=== PATIENT | male | born 1965 | race Caucasian/White ===

== ENCOUNTER → 2020-08-31 | Outpatient (CLI) | payer BC | LOC: COL.VAS 11:58 | DX: I65.23 Occlusion and stenosis of bilateral carotid arteries (principal) ==

== ENCOUNTER 2020-12-22 16:01 | Observation (INO) | payer BC ==
[~2020-12-22] VITALS: Ht 175.3 cm; Wt 97.7 kg
[2020-12-22 16:42] LABS: BASO % 0.4 % (0.0-2.0); EOS % 0.3 % (0-4.0); GRAN % 69.5 % (42.2-75.2); HEMOGLOBIN 14.3 g/dl (13.5-18.0); LYMPH # 2.2 (1.2-3.4); LYMPH % 21.8 % (20.0-51.0); MEAN CELL VOLUME 98 fl (80.0-100.0); MEAN CORPUSCULAR HEMOGLOBIN 33 pg (27.0-31.0); MEAN CORPUSCULAR HGB CONC 33 g/dl (33.0-37.0); MEAN PLATELET VOLUME 10.7 fl (7.4-10.4); MONO # 0.7 (0.1-0.6); MONO % 7.3 % (1.7-9.3); PLATELET COUNT 162 K/mm3 (130-400); RED BLOOD COUNT 4.37 M/mm3 (4.20-5.60); REDCELL DISTRIBUTION WIDTH-CV 12.6 % (11.5-14.5)
[2020-12-22 16:52] LABS: ALBUMIN 4.5 gm/dL (3.5-5.0); BILIRUBIN,TOTAL 1.1 mg/dL (0.0-1.0); CALCIUM 9.7 mg/dL (8.4-10.2); CREATININE, serum 1.2 (0.66-1.25); POTASSIUM 4.2 mmol/L (3.4-5.0); TOTAL PROTEIN 7.4 gm/dL (6.4-8.2)
[2020-12-22] MEDS ORDERED: FLOMAX 0.40.4 MG/CAP PO (16:58)
[2020-12-22] MEDS ORDERED: GLUCOPHAGE500 MG/TAB PO (16:59)
[2020-12-22] MEDS ORDERED: PRINIVIL20 MG PO (16:59)
[2020-12-22] MEDS ORDERED: CELEXA10 MG PO (16:59)
[2020-12-22] MEDS ORDERED: LIPITOR20 MG PO (16:59)
[2020-12-22] MEDS ORDERED: SYNTHROID0.05 MG/TA PO (17:00)
[2020-12-22] MEDS ORDERED: ZYLOPRIM 100MG100 MG PO (17:00)
[2020-12-22] MEDS ORDERED: VITAMIN B1 50 MG (17:00)
[2020-12-22] MEDS ORDERED: BUSPAR DIVIDOSE15 MG PO (17:01)
[2020-12-22] MEDS ORDERED: ELIQUIS 5MG PO (17:01)
[2020-12-22] MEDS ORDERED: TAZTIA300 (17:01)
[2020-12-22] MEDS ORDERED: LYRICA 100MG C100 M1 PO (17:01)
[2020-12-22] MEDS ORDERED: QUESTRAN4 GM/9 GM PO (17:02)
[2020-12-22 17:06] LABS: TROPONIN-I 0.039 ng/mL (0.000-0.035)
[2020-12-22 17:44] LABS: INR 1.5 (0.8-3.0)
[2020-12-22 17:46] LABS: PARTIAL THROMBOPLASTIN TIME 32.4 SECONDS (26.0-37.0)
[2020-12-22 20:38] LABS: CHOLESTEROL RISK RATIO 2.3
[2020-12-22 22:02] VITALS: BP 149/63; PULSE 98; TEMP 98.3
[2020-12-23] VITALS (23 sets, daily range): BP systolic 113–166; BP diastolic 53–93; PULSE 69–92; TEMP 97.4–98.5
--- NOTE | 2020-12-23 05:59 | NUR ---
Patient was pleasant and rested throughout the evening after giving him melatonin. He has not needed any pain medication. Loop recorder was interrogated and results placed in chart. He has been NPO since midnight.
[2020-12-23 06:29] LABS: ALBUMIN 3.4 gm/dL (3.5-5.0); BILIRUBIN,TOTAL 1.1 mg/dL (0.0-1.0); CALCIUM 8.5 mg/dL (8.4-10.2); CREATININE, serum 1.07 (0.66-1.25); POTASSIUM 3.9 mmol/L (3.4-5.0)
[2020-12-23 06:40] LABS: TROPONIN-I 0.042 ng/mL (0.000-0.035)
[2020-12-23 06:49] LABS: BASO % 0.6 % (0.0-2.0); EOS # 0.1 (0.0-0.7); EOS % 1.2 % (0-4.0); GRAN # 3.2 (1.4-6.5); GRAN % 48.3 % (42.2-75.2); LYMPH # 2.5 (1.2-3.4); LYMPH % 38.2 % (20.0-51.0); MEAN CELL VOLUME 98 fl (80.0-100.0); MEAN CORPUSCULAR HGB CONC 34 g/dl (33.0-37.0); MEAN PLATELET VOLUME 10.8 fl (7.4-10.4); MONO # 0.7 (0.1-0.6); MONO % 11.2 % (1.7-9.3); PLATELET COUNT 131 K/mm3 (130-400); RED BLOOD COUNT 3.66 M/mm3 (4.20-5.60); REDCELL DISTRIBUTION WIDTH-CV 12.6 % (11.5-14.5)
[2020-12-23 07:04] LABS: HEMATOCRIT 35.8 % (42.0-52.0); HEMOGLOBIN 12.2 g/dl (13.5-18.0); MEAN CORPUSCULAR HEMOGLOBIN 33 pg (27.0-31.0)
--- NOTE | 2020-12-23 09:36 | NUR ---
Assessment complete. Patient sitting up in the recliner at this time. Patient denies pain or discomfort at this time. He is aware of his POC. He remains NPO at this time, pending a consult with Dr. Chirinos. Heart murmur obvious on auscultation. No other needs were expressed at thsi time. Call light is in reach.
--- NOTE | 2020-12-23 09:37 | NUR ---
SW met with the patient to discuss discharge plan. The patient lives alone in [place]. He reports independence with ADLs and has a walking stick. The patient's PCP is Dr. Benoit De Guzman and he receives his medications from [facility]. The patient does not have a DPOA-HC and he was not interested in completing one at this time. He states that he is not and does not have any children. His parents are Andrei (ph#[phone]) and Jennifer Butt and they are his next of kin. They live in [place]. The patient plans to return home upon discharge. No additional needs at this time.
--- NOTE | 2020-12-23 09:52 | NUR ---
Initial visit; Patient thanked Management Assistant for looking in on him and offering God's blessings.
[2020-12-23 14:41] LABS: HEMATOCRIT 38.8 % (42.0-52.0); HEMOGLOBIN 12.8 g/dl (13.5-18.0); MEAN CELL VOLUME 100 fl (80.0-100.0); MEAN CORPUSCULAR HEMOGLOBIN 33 pg (27.0-31.0); MEAN CORPUSCULAR HGB CONC 33 g/dl (33.0-37.0); MEAN PLATELET VOLUME 10.7 fl (7.4-10.4); PLATELET COUNT 135 K/mm3 (130-400); RED BLOOD COUNT 3.87 M/mm3 (4.20-5.60); REDCELL DISTRIBUTION WIDTH-CV 12.5 % (11.5-14.5)
[2020-12-23 14:46] LABS: INR 1.5 (0.8-3.0); PROTHROMBIN TIME 16.8 SECONDS (9.7-12.8)
[2020-12-23 14:49] LABS: PARTIAL THROMBOPLASTIN TIME 32.8 SECONDS (26.0-37.0)
[2020-12-23 14:50] LABS: CALCIUM 8.8 mg/dL (8.4-10.2); CREATININE, serum 0.97 (0.66-1.25); POTASSIUM 4.2 mmol/L (3.4-5.0)
--- NOTE | 2020-12-23 15:33 | NUR ---
ekg ordered @ 1417. rt not notified and did not see order until 1530. rt called medical floor and patient had already gone to laborer pipelines. ekg was not done.
--- NOTE | 2020-12-23 16:22 | NUR ---
Patient arrived back form heart cath at this time. He is alert, doing well, no complaints of pain. TR band is in place, no bleading or hematoma present. Minor tremors still present in patient but these were present prior to procedure. Vitals being monitored per protocol. Will continue to monitor. Call light is in reach.
--- NOTE | 2020-12-23 19:00 | NUR ---
15 mls of air to right radial compression band. 5 mls released. Site began bleeding. Reinflated to 15 mls. Bleeding stopped. Will wait 1 hour and attempt to release air again.
--- NOTE | 2020-12-23 21:15 | NUR ---
Shift assessment complete. A&Ox4. Heart RRR. Lungs CTA. Denies chest pain, SOA, dizziness or other concerns. TR band in place to right radial heart cath access site. Right hand warm and pink, pt denies numbness or tingling. Compression band with 15 mls air, 3 mls released with no signs of bleeding. Waited 10 minutes and 2 more mls released w/o complication. Denies needs. Call light in reach.
--- NOTE | 2020-12-23 22:00 | NUR ---
3 mls released from TR band w/o signs of bleeding.
--- NOTE | 2020-12-23 23:00 | NUR ---
2 mls released from right radial compression band w/o bleeding.
[2020-12-24 01:30] VITALS: BP 146/68; PULSE 82; TEMP 97.7
[2020-12-24 03:34] VITALS: BP 159/78; PULSE 81; TEMP 97.4
[2020-12-24 03:53] VITALS: BP 159/78; PULSE 81; TEMP 97.4
[2020-12-24 05:29] VITALS: BP 155/79; PULSE 82; TEMP 97.3
--- NOTE | 2020-12-24 06:01 | NUR ---
Rested through night w/no complaints. TR band remains in place to right wrist with no s/s complication. Denies chest pain.
[2020-12-24 06:57] LABS: HEMOGLOBIN 12.5 g/dl (13.5-18.0); MEAN CELL VOLUME 98 fl (80.0-100.0); MEAN CORPUSCULAR HEMOGLOBIN 34 pg (27.0-31.0); MEAN CORPUSCULAR HGB CONC 34 g/dl (33.0-37.0); MEAN PLATELET VOLUME 10.6 fl (7.4-10.4); PLATELET COUNT 128 K/mm3 (130-400); RED BLOOD COUNT 3.71 M/mm3 (4.20-5.60); REDCELL DISTRIBUTION WIDTH-CV 12.3 % (11.5-14.5)
[2020-12-24 06:59] LABS: HEMATOCRIT 36.5 % (42.0-52.0)
[2020-12-24 07:04] LABS: CALCIUM 8.5 mg/dL (8.4-10.2); CREATININE, serum 1.03 (0.66-1.25)
--- NOTE | 2020-12-24 07:10 | NUR ---
Report with NEGRO Bettencourt. Pt sitting up in chair awaiting breakfast, denies pain or needs at this time. TR band to right wrist, no s/s of bleeding. Call light in reach.
[2020-12-24 08:00] VITALS: BP 154/66; PULSE 87; TEMP 98
[2020-12-24] MEDS ORDERED: ASPIRIN 81M81 MG/TA2 PO (08:30)
--- NOTE | 2020-12-24 09:00 | NUR ---
Assessment complete. Pt ambulating in rm with steady gait, denies pain, A&O x 4. Bandaid to right wrist, no s/s of bleeding. Saline lock IV to left AC without s/s of complications. POC for discharge reviewed with pt. Call light in reach.
--- NOTE | 2020-12-24 11:10 | NUR ---
Discharge instructions reviewed with pt regarding medication plan, follow-up appointments, and post cath care. Questions invited and answered. Pt discharged home, ambulates out of facility accompanied by this nurse, transporation provided by pt's friend.
== END 2020-12-24 11:15 | disposition home or self-care (01) ==
LOC: COL.ER 16:01 → MEDICAL 18:04
PROVIDERS: Family Medicine; Internal Medicine Interventional Cardiology; Physician Assistant; Student in an Organized Health Care Education/Training Program; ADMIT Internal Medicine
DX: I25.10 Atherosclerotic heart disease of native coronary artery without angina pectoris (principal); I25.2 Old myocardial infarction; E03.9 Hypothyroidism, unspecified; F41.9 Anxiety disorder, unspecified; I35.1 Nonrheumatic aortic (valve) insufficiency; E11.9 Type 2 diabetes mellitus without complications; I10 Essential (primary) hypertension; E78.5 Hyperlipidemia, unspecified; I48.91 Unspecified atrial fibrillation; G47.33 Obstructive sleep apnea (adult) (pediatric); K58.9 Irritable bowel syndrome, unspecified; F17.210 Nicotine dependence, cigarettes, uncomplicated; Z79.84 Long term (current) use of oral hypoglycemic drugs; Z79.02 Long term (current) use of antithrombotics/antiplatelets
CPT/HCPCS: 99232-AI; C1769; G0378; J1644; J2250; J3010; J7040; Q9967

== ENCOUNTER 2021-03-03 14:16 | Day surgery (SDC) | payer OTHER ==
[~2021-03-03] VITALS: Ht 175.3 cm; Wt 99.5 kg
[2021-03-03] VITALS (11 sets, daily range): BP systolic 98–139; BP diastolic 41–63; PULSE 67–95; TEMP 98.2–98.6
[~2021-03-03 14:16] MED LIST: ASPIRIN 81M81 MG/TA2 PO; BUSPAR DIVIDOSE15 MG PO; CELEXA10 MG PO; ELIQUIS 5MG PO; FLOMAX 0.40.4 MG/CAP PO; GLUCOPHAGE500 MG/TAB PO; LIPITOR20 MG PO; LYRICA 100MG C100 M1 PO; PRINIVIL20 MG PO; QUESTRAN4 GM/9 GM PO; SYNTHROID0.05 MG/TA PO; TAZTIA300; VITAMIN B1 50 MG; ZYLOPRIM 100MG100 MG PO
[2021-03-03] MEDS ORDERED: CELEXA 20MG20 MG/TAB PO (15:20)
[2021-03-03] MEDS ORDERED: TAZTIA360 PO (15:22)
[2021-03-03] MEDS ORDERED: ONE-A-DAY ESSE1 EACH PO (15:26)
[2021-03-03] MEDS ORDERED: OMEGA-3 1000 MG1 CAP PO (15:27)
--- NOTE | 2021-03-03 19:27 | NUR ---
Patient resting in bed. CBI slowed. light pink output. Vss on room air. Scds ble. He tolerated dinner. Ivf per orders. Bedside report to Gerri NEGRO
--- NOTE | 2021-03-03 21:30 | NUR ---
PT IN BED. HAS CBI INFUSING AT SLOW RATE, URINE IS PINK TINGED. TAKES HS MEDS WITHOUT PROBLEM. IVF CAPPED, SITE TO LEFT FOREARM FLUSHES WELL. CATH CARE PROVIDED. DENIES PAIN AT THIS TIME.
[2021-03-04 03:06] VITALS: BP 144/56; PULSE 77; TEMP 98
--- NOTE | 2021-03-04 05:00 | NUR ---
URINE HAS REMAINED PINK WITH CBI IRRIGATION. PT HAS RESTED WELL THIS SHIFT.
[2021-03-04 07:45] VITALS: BP 151/71; PULSE 84; TEMP 98.3
--- NOTE | 2021-03-04 08:00 | NUR ---
I AGREE WITH [employer]ONE STUDENT ASSESSMENT, SEE CHARTING.
--- NOTE | 2021-03-04 08:00 | NUR ---
PATIENT ALERT AND ORIENTED. VITAL SIGNS STABLE. DENIES PAIN AT THIS TIME. PATIENT ADMITTED 03/03 FOR CYSTOSCOPY. MARIE TO DD WITH RED RED-TINGED URINE OUTPUT. CBI INFUSING AT MODERATE RATE. PATIENT ASSESSMENT WITHIN NORMAL LIMITS. HEART MURMUR NOTED. TOLERATING CARB CONTROL DIET WITH NO COMPLAINTS OF N/V. LEFT FOREARM IV TO INT. PATIENT RESTING IN BED WITH CALL LIGHT IN REACH. NO OTHER NEEDS AT THIS TIME.
[2021-03-04 11:36] VITALS: BP 151/60; PULSE 77; TEMP 98.4
--- NOTE | 2021-03-04 11:47 | NUR ---
SW met with patient to conduct intake evaluation. Patient lives at home alone in [place]. Patient does not have a DPOA presently, but he does have paperwork at home that is filled out. Patient's PCP is Dr. De Guzman, and he uses [facility] for medications. Patient denies needing assistance with ADLs and uses a cane for mobility and a CPAP. Patient does not remember who provided him with CPAP. Patient will need assistance affording medications. SW will provide assistance. Patient plans to return home upon discharge and drive himself. Patient will discharge home today 03/[address].
--- NOTE | 2021-03-04 11:50 | NUR ---
P&P MARIE PER ORDERS. ARBENE STUDENT DID P&P, NOTED 1300CC OF RED-TINGED URINE. PATIENT TOLERATED WELL. URINAL AT BEDSIDE. PATIENT GIVEN 6 BOTTLE ROUTINE EDUCATION.
--- NOTE | 2021-03-04 12:04 | NUR ---
Engineering Manager visited with patient but nothing else needed at this time.
--- NOTE | 2021-03-04 13:30 | NUR ---
PATIENT CALLED OUT REQUESTING TO DISCHARGE AFTER SECOND VOID. URINE IS PINK, CLEAR, NO CLOTS. PATIENT REPORTS HE HAS ANXIETY AND NEEDS TO GET HOME. 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 UROLOGIST OKAYED DISCHARGE. DC'D LEFT FORARM IV, COVERED SITE WITH [employer]. GAVE DISCHARGE INSTRUCTIONS, NO NEW SCRIPTS, AND OFFICE WILL CALL PATIENT FOR F/U APT. ANSWERED ALL QUESTIONS/CONCERNS. PATIENT DRESSED AND HAS PERSONAL BELONGINGS. PATIENT DISCHARGED.
[2021-10-06] MEDS ORDERED: AMOXICILLIN 8751 TAB PO (15:52)
== END 2021-03-04 13:45 | disposition home or self-care (01) ==
LOC: SDCO 14:16 → SURG 17:52 → SDCO 03-04 13:45
DX: R31.0 Gross hematuria (principal); I48.91 Unspecified atrial fibrillation; F41.9 Anxiety disorder, unspecified; E11.22 Type 2 diabetes mellitus with diabetic chronic kidney disease; I12.9 Hypertensive chronic kidney disease with stage 1 through stage 4 chronic kidney disease, or unspecified chronic kidney disease; N18.30 Chronic kidney disease, stage 3 unspecified; E78.5 Hyperlipidemia, unspecified; E78.00 Pure hypercholesterolemia, unspecified; E03.9 Hypothyroidism, unspecified; K58.9 Irritable bowel syndrome, unspecified; F32.9 Major depressive disorder, single episode, unspecified; I08.0 Rheumatic disorders of both mitral and aortic valves; I25.2 Old myocardial infarction; E11.42 Type 2 diabetes mellitus with diabetic polyneuropathy; Z79.82 Long term (current) use of aspirin; Z79.01 Long term (current) use of anticoagulants; Z79.84 Long term (current) use of oral hypoglycemic drugs; I25.10 Atherosclerotic heart disease of native coronary artery without angina pectoris; G47.33 Obstructive sleep apnea (adult) (pediatric)
CPT/HCPCS: OP; C1769; J0690; J2405; J2704; J3010; J7030; Q9967

== ENCOUNTER 2021-05-18 18:54 | Emergency (ER) | payer OTHER ==
[~2021-05-18] VITALS: Ht 175.3 cm; Wt 100.0 kg
[~2021-05-18 18:54] MED LIST changes: +CELEXA 20MG20 MG/TAB PO; +OMEGA-3 1000 MG1 CAP PO; +ONE-A-DAY ESSE1 EACH PO; +TAZTIA360 PO
[2021-05-18 19:00] VITALS: TEMP 97.4
[2021-05-18 20:52] VITALS: BP 136/59; PULSE 82
[2021-10-06] MEDS ORDERED: AMOXICILLIN 8751 TAB PO (15:52)
== END 2021-05-18 20:55 | disposition home or self-care (01) ==
LOC: COL.ER 18:54
DX: R04.0 Epistaxis (principal); I10 Essential (primary) hypertension; I48.91 Unspecified atrial fibrillation; I25.2 Old myocardial infarction; E11.9 Type 2 diabetes mellitus without complications; E78.5 Hyperlipidemia, unspecified; Z95.818 Presence of other cardiac implants and grafts; Z79.01 Long term (current) use of anticoagulants; Z79.899 Other long term (current) drug therapy; Z79.84 Long term (current) use of oral hypoglycemic drugs

== ENCOUNTER 2021-10-22 16:54 | Emergency (ER) | payer SELFPAY ==
[~2021-10-22] VITALS: Ht 177.8 cm; Wt 79.5 kg
[~2021-10-22 16:54] MED LIST changes: +AMOXICILLIN 8751 TAB PO
[2021-10-22 17:02] VITALS: TEMP 98.3
[2021-10-22] MEDS ORDERED: AMOXICILLIN 8751 TAB PO (17:23)
[2021-10-22 17:51] VITALS: BP 134/65; PULSE 82
== END 2021-10-22 18:00 | disposition home or self-care (01) ==
LOC: COL.ER 16:54
DX: R04.0 Epistaxis (principal); I48.91 Unspecified atrial fibrillation; E78.5 Hyperlipidemia, unspecified; I10 Essential (primary) hypertension; I25.2 Old myocardial infarction; F41.9 Anxiety disorder, unspecified; E11.40 Type 2 diabetes mellitus with diabetic neuropathy, unspecified; Z79.01 Long term (current) use of anticoagulants; Z79.899 Other long term (current) drug therapy; Z79.84 Long term (current) use of oral hypoglycemic drugs

== ENCOUNTER 2022-07-26 11:18 | Emergency (ER) | payer MEDICARE ==
[~2022-07-26] VITALS: Ht 177.8 cm; Wt 95.5 kg
[2022-07-26 11:19] VITALS: TEMP 99.5
[2022-07-26] MEDS ORDERED: ZESTRIL 10MG10 MG PO (11:53)
[2022-07-26] MEDS ORDERED: NATURAL IRON65 MG PO (11:54)
[2022-07-26] MEDS ORDERED: FOLIC ACID0.4 MG PO (11:54)
[2022-07-26 11:58] LABS: BASO # 0.1 K/mm3 (0.0-0.2); BASO % 0.5 % (0.0-2.0); EOS % 0.2 % (0.0-4.0); GRAN # 10.4 K/mm3 (1.4-6.5); GRAN % 84.8 % (42.2-75.2); HEMATOCRIT 37.1 % (42.0-52.0); HEMOGLOBIN 12.3 g/dl (13.5-18.0); LYMPH # 0.8 K/mm3 (1.2-3.4); LYMPH % 6.3 % (20.0-51.0); MEAN CELL VOLUME 101 fl (80.0-100.0); MEAN CORPUSCULAR HEMOGLOBIN 33 pg (27-31); MEAN CORPUSCULAR HGB CONC 33 g/dl (33.0-37.0); MONO # 0.8 K/mm3 (0.1-0.6); MONO % 6.8 % (1.7-9.3); PLATELET COUNT 268 K/mm3 (130-400); RED BLOOD COUNT 3.69 M/mm3 (4.20-5.60); REDCELL DISTRIBUTION WIDTH-CV 12.9 % (11.5-14.5)
[2022-07-26 12:08] LABS: COLLECTION METHOD CLEAN CATCH
[2022-07-26 12:22] LABS: GRANULAR CAST >12 /lpf (0); MUCOUS Present (NOT PRESENT); SQUAMOUS EPITHELIAL None Seen /hpf (0-10); URINE BACTERIA Rare /hpf (NONE SEEN)
[2022-07-26 12:22] LABS: TROPONIN-I 0.01 ng/mL (0.00-0.033)
[2022-07-26 12:23] LABS: URINE APPEARANCE Cloudy (CLEAR/HAZY); URINE COLOR Amber (YELLOW)
[2022-07-26 12:24] LABS: URINE BLOOD TRACE-INTACT (NEGATIVE); URINE GLUCOSE 2+ (NEGATIVE); URINE KETONE TRACE (NEGATIVE); URINE NITRATE Negative (NEGATIVE); URINE PROTEIN(semi-quant) 1+ (NEGATIVE); URINE UROBILINOGEN 0.2 E.U/dL (0.2-1.0)
[2022-07-26 12:24] LABS: ALBUMIN 2.8 gm/dL (3.5-5.0); BILIRUBIN,TOTAL 0.8 mg/dL (0.2-1.2); CALCIUM 9.3 mg/dL (8.4-10.2); CREATININE, serum 1.2 mg/dL (0.72-1.25); POTASSIUM 4.9 mmol/L (3.5-4.5); TOTAL PROTEIN 7.3 gm/dL (6.2-8.1)
[2022-07-26 13:12] LABS: INR 2.1 (0.8-3.0); PROTHROMBIN TIME 24.5 SECONDS (9.7-12.8)
[2022-07-26 14:47] LABS: TSH w REFLEX 1.105 uIU/mL (0.350-4.940)
[2022-07-26] MEDS ORDERED: PACERONE400 MG PO (15:49)
[2022-07-26] MEDS ORDERED: PACERONE200 MG PO ×2 (15:49)
[2022-07-26] MEDS ORDERED: CEPHALEXIN500 M1 PO (15:53)
[2022-07-26 16:35] VITALS: BP 106/54; PULSE 80
== END 2022-07-26 16:35 | disposition home or self-care (01) ==
LOC: COL.ER 11:18
PROVIDERS: Emergency Medicine; Nurse Practitioner
DX: I48.91 Unspecified atrial fibrillation (principal); N39.0 Urinary tract infection, site not specified; G47.33 Obstructive sleep apnea (adult) (pediatric); Z20.822 Contact with and (suspected) exposure to COVID-19; Z98.61 Coronary angioplasty status; Z86.79 Personal history of other diseases of the circulatory system; Z79.01 Long term (current) use of anticoagulants; Z99.89 Dependence on other enabling machines and devices
CPT/HCPCS: J0696; J2704; J7030; J7120

== ENCOUNTER → 2022-08-13 | Outpatient (CLI) | payer MEDICARE ==
[~2022-08-13] MED LIST changes: +CEPHALEXIN500 M1 PO; +FOLIC ACID0.4 MG PO; +NATURAL IRON65 MG PO; +PACERONE200 MG PO; +PACERONE400 MG PO; +ZESTRIL 10MG10 MG PO
[2022-08-13 13:11] LABS: COLLECTION METHOD CLEAN CATCH
[2022-08-13 13:14] LABS: HEMOGLOBIN 14.5 g/dl (13.5-18.0); MEAN CELL VOLUME 103 fl (80.0-100.0); MEAN CORPUSCULAR HEMOGLOBIN 34 pg (27-31); MEAN CORPUSCULAR HGB CONC 33 g/dl (33.0-37.0); MEAN PLATELET VOLUME 9.8 fl (7.4-10.4); PLATELET COUNT 219 K/mm3 (130-400); RED BLOOD COUNT 4.26 M/mm3 (4.20-5.60); REDCELL DISTRIBUTION WIDTH-CV 15.5 % (11.5-14.5)
[2022-08-13 13:20] LABS: MUCOUS Present (NOT PRESENT); SQUAMOUS EPITHELIAL 0-2 /hpf (0-10); URINE BACTERIA None Seen /hpf (NONE SEEN); URINE RBC 0-2 /hpf (0-2); URINE WBC 0-2 /hpf (0-2)
[2022-08-13 13:22] LABS: URINE APPEARANCE Clear (CLEAR/HAZY); URINE BLOOD Negative (NEGATIVE); URINE COLOR Yellow (YELLOW); URINE GLUCOSE Negative (NEGATIVE); URINE KETONE TRACE (NEGATIVE); URINE NITRATE Negative (NEGATIVE); URINE PROTEIN(semi-quant) 1+ (NEGATIVE)
[2022-08-13 13:36] LABS: ALBUMIN 4.1 gm/dL (3.5-5.0); BILIRUBIN,TOTAL 1.2 mg/dL (0.2-1.2); CALCIUM 10.7 mg/dL (8.4-10.2); CREATININE, serum 1.42 mg/dL (0.72-1.25); POTASSIUM 5.6 mmol/L (3.5-4.5); TOTAL PROTEIN 8.6 gm/dL (6.2-8.1)
[2022-08-13 13:41] LABS: TROPONIN-I 0.021 ng/mL (0.00-0.033)
== END ==
LOC: COL.LAB 11:56 → COL.RAD 12:15 → COL.LAB 12:15
PROVIDERS: Nurse Practitioner
DX: I48.0 Paroxysmal atrial fibrillation (principal); I10 Essential (primary) hypertension; R07.89 Other chest pain; R42 Dizziness and giddiness

== ENCOUNTER → 2022-08-20 | Outpatient (CLI) | payer MEDICARE ==
[2022-08-20 16:58] LABS: ALBUMIN 3.7 gm/dL (3.5-5.0); BILIRUBIN,TOTAL 1.1 mg/dL (0.2-1.2); CALCIUM 9.3 mg/dL (8.4-10.2); CREATININE, serum 1.18 mg/dL (0.72-1.25); TOTAL PROTEIN 7.2 gm/dL (6.2-8.1)
== END ==
LOC: ZCOL.LAB 16:45
PROVIDERS: Nurse Practitioner
DX: I48.0 Paroxysmal atrial fibrillation (principal)

== ENCOUNTER → 2023-02-06 | Outpatient (CLI) | payer MEDICARE | LOC: COL.RAD 15:27 | DX: I65.23 Occlusion and stenosis of bilateral carotid arteries (principal) ==